=== PATIENT | female | born 1970 | race Two or more races ===

== ENCOUNTER 2017-07-03 21:19 | Emergency (ER) | payer OTHER ==
[~2017-07-03] VITALS: Ht 160 cm; Wt 90.7 kg
[2017-07-03 21:47] LABS: BASO % 0 % (0-3); EOS % 0 % (0-3); HEMATOCRIT 35.2 % (36.0-47.0); LYMPH # 0.6 x10^3/uL (1.0-4.8); LYMPH % 8 % (24-48); MEAN CORPUSCULAR HEMOGLOBIN 26 pg (25-35); MEAN CORPUSCULAR HGB CONC 31 g/dL (31-37); MEAN CORPUSCULAR VOLUME 82 fL (79-100); MONO % 7 % (0-9); NEUT % 84 % (31-73); PLATELET COUNT 102 x10^3/uL (140-400); RED BLOOD COUNT 4.28 x10^6/uL (3.50-5.40); RED CELL DISTRIBUTION WIDTH 19.6 % (11.5-14.5)
[2017-07-03 21:59] LABS: CALCIUM 8.4 mg/dL (8.5-10.1); CREATININE 1.1 mg/dL (0.6-1.0); GFR 53.5; POTASSIUM 3.9 mmol/L (3.5-5.1)
[2017-07-03 22:04] LABS: ALBUMIN 3.5 g/dL (3.4-5.0); TOTAL BILIRUBIN 0.7 mg/dL (0.2-1.0); TOTAL PROTEIN 6.9 g/dL (6.4-8.2)
[2017-07-03 22:38] LABS: CKMB MASS 0.7 ng/mL (0.0-3.6); CREATINE KINASE 26 U/L (26-192)
--- NOTE | 2017-07-03 23:19 | PHYS DOC ---
Past Medical History Past Medical History: CVA, Diabetes-Type II, High Cholesterol, Liver Disease, OH Additional Past Medical Histor: Liver cirrhosis, liver & kidney transplant. Alcohol Use: None Drug Use: None Adult General Chief Complaint Chief Complaint: multiple HPI HPI Patient is a 46 year old [place] female who is status post liver and kidney transplant at [facility] in February 2015, presents to the ED by EMS with multiple complaints. She is accompanied by family. The patient does not speak Hungarian but family members speak both and translated bedside. Thank you patient about 7:30 tonight developed generalized weakness. She felt short of air and she felt faint. She did not actually faint. She has had a headache for 2 or 3 days, this is not a particularly unusual headache for her. She has had generalized swelling including face, extremities, and abdomen, for 2-3 days, worsening. Tonight also, she had chest pain that developed suddenly. At this time, her chest pain is about a 3. She feels short of breath. He feels weak all over. She does not feel more weak on one side or the other. Patient had liver and kidney transplant in February 2015 due to "cirrhosis". They stated about one month ago she had some liver rejection, she was treated with antirejection meds, and that seems to have improved. She also had a "blockage in her bile duct". They are not sure of the outcome of that. The swelling has started recently, just in the last day or 2. Patient has a history of CVA in the past and also a history of OH about one year ago. Denies history of DVT or PE. She is not on a blood thinner. She is cared for by the transplant team at . Patient's son tells me that he called the transplant specialist [facility] and was told to bring the patient to the ER for evaluation. However, EMS was not able to transport to because their ER is closed to ambulance traffic [facility]. Review of Systems Review of Systems Constitutional: Denies fever or chills , complains of generalized weakness HENT: Denies nasal congestion or sore throat [] Respiratory: Complains of shortness of air Cardiovascular: As in history of present illness GI: Complains of abdominal bloating, denies vomiting : She does make urine Musculoskeletal: Denies back pain or joint pain [] Integument: Denies rash or skin lesions [] Neurologic: She has a headache, her weakness does not seem to be focal Allergies Allergies Allergies Coded Allergies Type Severity Reaction Last Updated Verified egg Allergy Intermediate rash 07/03/17 Yes glipizide Allergy Intermediate rash 07/03/17 Yes shellfish derived Allergy Intermediate rash 07/03/17 Yes Physical Exam Physical Exam Constitutional: Well developed, well nourished, she does appear to have diffuse swelling of the face, trunk, and extremities, alert, she does not appear dyspneic but she is tachypneic, pulse ox on room air 96-98% HENT: Normocephalic, atraumatic, bilateral external ears normal, nose normal. [] Eyes: conjunctiva normal, no discharge. [] Neck: Normal range of motion, no stridor. [] Cardiovascular:Heart rate regular rhythm, no murmur [] Lungs & Thorax: Bilateral breath sounds clear to auscultation without rales, good air movement bilaterally Abdomen: Bowel sounds normal, soft, no tenderness, no masses, no pulsatile masses. Nondistended but may be somewhat swollen. Skin: Warm, dry, no erythema, no rash. [] Extremities: No tenderness, no cyanosis, no clubbing, ROM intact, 1+ pretibial edema bilaterally, no calf swelling or calf induration Neurologic: Alert and oriented X 3, normal motor function, no focal deficits noted. No facial asymmetry noted on my evaluation. Patient is able to sit herself up on the bed at my request for neuro testing. Patient was able to ambulate with minimal assistance to the ED bruns bathroom and back, per ED RN Current Patient Data Vital Signs Vital Signs Date Time Temp Pulse Resp B/P (MAP) Pulse Ox O2 Delivery O2 Flow Rate FiO2 07/03/17 23:00 62 36 134/62 (86) 96 Room Air 07/03/17 21:22 98.0 98.0 Lab Values Laboratory Tests Test 07/03/17 20:55 07/03/17 21:35 POC Urine HCG, Qualitative Hcg negative (Negative) White Blood Count 7.0 x10^3/uL (4.0-11.0) Red Blood Count 4.28 x10^6/uL (3.50-5.40) Hemoglobin 11.0 g/dL (12.0-15.5) L Hematocrit 35.2 % (36.0-47.0) L Mean Corpuscular Volume 82 fL (79-100) Mean Corpuscular Hemoglobin 26 pg (25-35) Mean Corpuscular Hemoglobin Concent 31 g/dL (31-37) Red Cell Distribution Width 19.6 % (11.5-14.5) H Platelet Count 102 x10^3/uL (140-400) L Neutrophils (%) (Auto) 84 % (31-73) H Lymphocytes (%) (Auto) 8 % (24-48) L Monocytes (%) (Auto) 7 % (0-9) Eosinophils (%) (Auto) 0 % (0-3) Basophils (%) (Auto) 0 % (0-3) Neutrophils # (Auto) 5.9 x10^3uL (1.8-7.7) Lymphocytes # (Auto) 0.6 x10^3/uL (1.0-4.8) L Monocytes # (Auto) 0.5 x10^3/uL (0.0-1.1) Eosinophils # (Auto) 0.0 x10^3/uL (0.0-0.7) Basophils # (Auto) 0.0 x10^3/uL (0.0-0.2) Sodium Level 137 mmol/L (136-145) Potassium Level 3.9 mmol/L (3.5-5.1) Chloride Level 100 mmol/L (98-107) Carbon Dioxide Level 29 mmol/L (21-32) Anion Gap 8 (6-14) Blood Urea Nitrogen 31 mg/dL (7-20) H Creatinine 1.1 mg/dL (0.6-1.0) H Estimated GFR (Cockcroft-Gault) 53.5 BUN/Creatinine Ratio 28 (6-20) H Glucose Level 136 mg/dL (70-99) H Calcium Level 8.4 mg/dL (8.5-10.1) L Total Bilirubin 0.7 mg/dL (0.2-1.0) Aspartate Amino Transferase (AST) 31 U/L (15-37) Alanine Aminotransferase (ALT) 89 U/L (14-59) H Alkaline Phosphatase 68 U/L (46-116) Creatine Kinase 26 U/L (26-192) Creatine Kinase MB (Mass) 0.7 ng/mL (0.0-3.6) Creatine Kinase MB Relative Index % (0-4) Troponin I Quantitative < 0.017 ng/mL (0.000-0.055) Total Protein 6.9 g/dL (6.4-8.2) Albumin 3.5 g/dL (3.4-5.0) Albumin/Globulin Ratio 1.0 (1.0-1.7) Laboratory Tests 07/03/17 21:35 Laboratory Tests 07/03/17 21:35 EKG EKG 12-lead EKG read by me. Sinus rhythm. Heart rate 68. There are no acute ST or T wave changes indicative of ischemia or infarction. No STEMI. No rhythm disturbance. T waves are normal. 2126[] Radiology/Procedures Radiology/Procedures One view portable chest x-ray read by me. Heart size is normal. Lung eduardo are clear. No pulmonary edema. No infiltrate. Chest x-ray is unremarkable.[] Course & Med Decision Making Course & Med Decision Making Pertinent Labs and Imaging studies reviewed. (See chart for details) 46-year-old female status post liver and kidney transplant at [facility] presents with new symptoms tonight of generalized weakness, shortness of air, feeling faint, and generalized swelling. Of concern, she recently had an episode of liver rejection per family's history. I discussed with the patient and her family that we will check some labs, EKG, chest x-ray, and they are agreeable to that plan. EKG, chest x-ray normal. There is no significant acute abnormality noted on her labs. No evidence of acute kidney or liver dysfunction. I returned to revisited the patient who is resting comfortably visiting with her family members. Her vital signs are stable. Her pulse ox is 96 on room air. She does not appear dyspneic. She has ambulated to the ED burns bathroom with minimal assistance per ED RN. I discussed these findings with the patient and her family. Patient's son tells me that this evening he did call the transplant specialist and was advised to bring the patient to the ED. They wanted to go to but it was closed. There feel much more comfortable if the patient could be transferred to to be cared for by the transplant service there. I believe that's an appropriate request for continuity of care. The patient does have demonstrable edema today and we're not clear why that is. I did give them the choice of discharge and follow-up by phone tomorrow but they are not comfortable with that, they would rather her be admitted to the transplant service for further evaluation. They believe she is too weak and would not be safe to be discharged, she might fall. 2320 I placed a call to the [facility] transfer line and discussed the case with them. They will get back to me. [address] Christine Saenz to be transferred to . Paperwork was completed, requested items were faxed, we are just waiting for a bed assignment which the transfer team stated should not take very long. [] Dragon Disclaimer Dragon Disclaimer This electronic medical record was generated, in whole or in part, using a voice recognition dictation system. Departure Departure Impression: Primary Impression: Dyspnea Additional Impressions: Anasarca associated with disorder of kidney Generalized weakness Liver transplant recipient Kidney transplant recipient Disposition: 02 TRANSFER [facility]-TRM HOSP Condition: STABLE Referrals: UNKNOWN PCP NAME (PCP) Problem Qualifiers KARIN MICHAEL MD Jul 03, 2017 23:19
[2017-07-04 01:11] VITALS: BP 114/75
--- NOTE | 2017-07-04 07:22 | EKG ---
[facility] [address] [place] [address] Test Date: 2017-07-03 Test Time: 21:27:39 Pat Name: TRINIDAD SHAIKH Department: Room: Gender: F [employer] Machine Operator: : 1970 Requested By: KARIN MICHAEL Order Number: [id number] Reading MD: Jessi Gallegos Measurements Intervals [place] Rate: 68 P: 0 IA: 124 QRS: 15 QRSD: 76 T: 55 QT: 380 QTc: 409 Interpretive Statements SINUS RHYTHM NORMAL ECG Electronically Signed On 07-06-2017 10:11:39 CDT by Jessi Gallegos
--- NOTE | 2017-07-04 08:22 | RAD ---
Portable chest, 07/03/2017: History: Shortness of breath, abdominal pain The heart size and pulmonary vascularity are normal. The lungs are clear. There is no evidence of pleural fluid. IMPRESSION: No acute cardiopulmonary abnormality is detected.
== END 2017-07-04 01:12 | disposition short-term general hospital (02) ==
LOC: ER 21:19
DX: R06.00 Dyspnea, unspecified (principal); N04.9 Nephrotic syndrome with unspecified morphologic changes; R53.1 Weakness; R51 Headache; R07.9 Chest pain, unspecified; R06.02 Shortness of breath; E11.9 Type 2 diabetes mellitus without complications; I25.2 Old myocardial infarction; E78.00 Pure hypercholesterolemia, unspecified; Z88.8 Allergy status to other drugs, medicaments and biological substances; Z91.012 Allergy to eggs; Z91.013 Allergy to seafood; Z94.4 Liver transplant status; Z94.0 Kidney transplant status; Z86.73 Personal history of transient ischemic attack (TIA), and cerebral infarction without residual deficits
CPT/HCPCS: 36415; 71010; 80053; 81025; 82553; 84484; 85025; 93005; 99285